=== PATIENT | male | born 1980 | race Caucasian/White ===

== ENCOUNTER 2024-09-06 13:05 | Emergency (ER) | payer SELFPAY ==
[2024-09-06 13:12] VITALS: BP 135/81; PULSE 73; TEMP 36.5; O2SAT 97; BMI 30.4
--- NOTE | 2024-09-06 13:24 | ED_ITS ---
HPI - Male Genitourinary General Chief complaint: Urogenital-Male Stated complaint: URINARY INFECTION SYMPTOMS Time Seen by Provider: 09/06/24 13:16 History of Present Illness HPI Narrative: 44-year-old male presents for possible STD. He has some slight tingling but no discharge. He had unprotected sex and is worried about STD. No genital area skin lesions or abdominal pain. Related Data Home Medications ?Medication ?Instructions ?Recorded ?Confirmed buprenorphine 8 mg-naloxone 2 mg 2 film sublingual Q24H 09/06/24 09/06/24 sublingual film Previous Rx's ?Medication ?Instructions ?Recorded doxycycline hyclate 100 mg capsule 100 mg PO BID 10 days #20 caps 09/06/24 Allergies Allergy/AdvReac Type Severity Reaction Status Date / Time No Known Drug Allergies Allergy Verified 09/06/24 13:12 Review of Systems ROS Narrative A ten point review of systems is negative except as noted above. PFSH PFSH Social History Little interest or pleasure in doing things: not at all Feeling down, depressed, or hopeless: not at all Exam Narrative Exam Narrative: Nurses note and vital signs reviewed and patient is not hypoxic. General: The patient appears well and in no apparent distress. Patient is resting comfortably on cart. Skin: Warm, dry, no pallor noted. There is no rash noted. Head: Normocephalic, atraumatic Eye: Normal conjunctiva, no drainage Ears, Nose, Mouth, and Throat: oral mucosa is moist. Nares patent. Cardiovascular: Regular Rate and Rhythm Respiratory: Patient is in no distress, no accessory muscle use, lungs are clear to auscultation, no wheezing, rales or rhonchi Back: non-tender GI: Soft and nontender Musculoskeletal: No joint swelling Neurological: Awake and alert Psychiatric: Cooperative Constitutional Vital Signs, click to edit/add: Last Vital Signs Temp 97.7 F 09/06/24 13:12 Pulse 73 09/06/24 13:12 Resp 18 09/06/24 13:12 BP 135/81 09/06/24 13:12 Pulse Ox 97 09/06/24 13:12 O2 Del Method Room Air 09/06/24 13:12 Course Vital Signs Vital signs: Vital Signs Temperature 97.7 F 09/06/24 13:12 Pulse Rate 73 09/06/24 13:12 Respiratory Rate 18 09/06/24 13:12 Blood Pressure 135/81 09/06/24 13:12 Pulse Oximetry 97 09/06/24 13:12 Oxygen Delivery Method Room Air 09/06/24 13:12 Temperature 97.7 F 09/06/24 13:12 Pulse Rate 73 09/06/24 13:12 Respiratory Rate 18 09/06/24 13:12 Blood Pressure 135/81 09/06/24 13:12 Pulse Oximetry 97 09/06/24 13:12 Oxygen Delivery Method Room Air 09/06/24 13:12 MDM - Male Genitourinary MDM Narrative Medical decision making narrative: Urinary probes are ordered and he was treated with Rocephin here and given a prescription for doxycycline. Treatment diagnosis and follow-up were discussed with the patient. Differential Diagnosis Differential diagnosis: Likely other (Urethritis, gonorrhea, chlamydia) Discharge Plan Discharge Chief Complaint: Urogenital-Male Clinical Impression: Urethritis Patient Disposition: Home, Self-Care Time of Disposition Decision: 13:22 Condition: Good Mode of Transportation: Private Vehicle Prescriptions / Home Meds: New doxycycline hyclate 100 mg capsule 100 mg PO BID 10 Days Qty: 20 0RF No Action buprenorphine-naloxone 8-2 mg film 2 film sublingual Q24H Print Language: Citizen Of [place] Instructions: Sexually Transmitted Diseases (ED), Safe Sex Practices (ED)
[2024-09-06] MEDS: CEFTRIAXONE 500 MG VIAL IM (13:35)
[2024-09-09 07:09] LABS: Neisseria gonorrhoeae, NAA Negative (Negative)
== END 2024-09-06 13:43 | disposition home or self-care (01) ==
PROVIDERS: Emergency Provider Emergency Medicine
DX: N34.2 Other urethritis (principal)
CPT/HCPCS: 87491; 87591; 96372; 99284; J0696